=== PATIENT | female | born 1950 | race Caucasian/White ===

== ENCOUNTER 2023-11-19 16:39 | Emergency (ER) | payer MEDICARE, SELFPAY ==
[2023-11-19] VITALS (12 sets, daily range): BP systolic 100–139; BP diastolic 37–58; PULSE 46–93; RESP 20–25; TEMP 36.3–36.4; O2SAT 89–95
--- NOTE | ~2023-11-19 | CT_ITS ---
EXAMINATION: CT abdomen pelvis wo con DATE: 11/19/2023 22:40 INDICATION: generalized abd pain; WBC 141 c/f malignancy TECHNIQUE: Computed tomography (CT) of the abdomen and pelvis was performed without intravenous contr ast. Automated exposure control and iterative reconstruction technique were employed. The dose-length product was 821.10 mGy-cm. COMPARISON: None. FINDINGS: Lower thorax: Coronary artery calcifications. Subsegmental left basilar consolidation. Small left ple ural effusion Liver: Mildly enlarged. Biliary/Gallbladder: Gallbladder is normal. No bile duct dilation. Pancreas: Mild fatty atrophy. Spleen: Enlarged. Multiple splenic hypodensities. Mild perisplenic stranding. Adrenals:No mass. Kidneys: No suspicious mass, obstructing stone, or hydronephrosis. GI tract: Duodenal diverticulum. No small or large bowel dilation. Normal appendix. Diverticulosis wi thout diverticulitis. Mesentery/Peritoneum: No ascites, mass, or free air. Retroperitoneum: No mass. Atherosclerotic abdominal aortic and/or arterial calcifications. Pelvis: Normal urinary bladder. Absent uterus. Soft Tissues: Soft tissues and body wall unremarkable. Bones: No acute osseous finding. Uncomplicated L5-S1 fusion hardware IMPRESSION: Subsegmental left basilar atelectasis/consolidation. Small left pleural effusion. Mild hepatomegaly. Marked splenomegaly with perisplenic stranding and multiple hypodense splenic lesions, that may repre sent benign or malignant lesions, splenic abscesses, infarct or a combination thereof. Consider MR of the abdomen without and with contrast for further evaluation. Reviewed, dictated and finalized at location K. IMPRESSION: Subsegmental left basilar atelectasis/consolidation. Small left pleural effusio n. Mild hepatomegaly. Marked splenomegaly with perisplenic stranding and multiple hypodense splenic l esions, that may represent benign or malignant lesions, splenic abscesses, infa rct or a combination thereof. Consider MR of the abdomen without and with contr ast for further evaluation.
--- NOTE | ~2023-11-19 | XR_ITS ---
XR chest 2V Ordering provider: Beth Lopez PA-C History: 73 years Female with . SOB . Comparison: None. FINDINGS: MEDIASTINUM: The cardiac silhouette is not enlarged. Elevation of the left hemidiaphragm. Atelectasis versus pneumonia in the left lung base with possible effusion. LUNGS: No infiltrates, effusions or pneumothorax. OTHER: No free air under the diaphragm. IMPRESSION: Left basal atelectasis versus pneumonia with pleural effusion. Reviewed, dictated and finalized at location A.
--- NOTE | ~2023-11-19 | CT_ITS ---
EXAMINATION: CT diagnostic chest wo con DATE: 11/20/2023 00:06 INDICATION: Pneumonia versus malignancy. TECHNIQUE: Computed tomography (CT) of the chest was performed without intravenous contrast. The dose -length product was 195.59 mGy-cm. Automated exposure control and iterative reconstruction technique were employed. COMPARISON: None FINDINGS: Small left pleural effusion. No thoracic lymphadenopathy. There is lingular and left lower lobe airspace disease which may represent atelectasis or pneumonia. Upper abdomen is unremarkable. No suspicious pulmonary nodules or masses. IMPRESSION: 1. Lingular and left lower lobe airspace disease which may represent atelectasis and/or pneumonia. 2: Small left pleural effusion. Reviewed, dictated and finalized at location B. IMPRESSION: 1. Lingular and left lower lobe airspace disease which may represent atelectasi s and/or pneumonia. 2: Small left pleural effusion.
--- NOTE | 2023-11-19 17:41 | ECG_ITS ---
Test Date: 2023-11-19 20:18:37 Measurements Intervals Transfer Rate: 86 P: 11 [place]: 173 QRS: 1 QRSD: 102 T: 29 QT: 396 QTc: 475 Interpretive Statements SINUS RHYTHM NONSPECIFIC T-WAVE ABNORMALITY- DIFFUSE LEADS BASELINE ARTIFACT- I, II, AVR, AVF, V2-V6 BORDERLINE ECG No previous ECG available for comparison Electronically Signed On 11-19-2023 20:44:09 CDT by Franki Oconnor D.O.
--- NOTE | 2023-11-19 17:42 | ED.WEAKNESS ---
HPI - Weakness General Chief complaint: Upper Respiratory Infection <Beth Lopez PA-C - Last Filed: 11/28/23 15:23> Stated complaint: fatigue, cough/congestion <Beth Lopez PA-C - Last Filed: 11/28/23 15:23> Time Seen by Provider: 11/19/23 17:42 <Beth Lopez PA-C - Last Filed: 11/28/23 15:23> Focused HPI: This is a 73-year-old female that presents to the emergency department for feeling unwell. Reports this has been ongoing over the last 10 days. Reports cough, congestion, shortness of breath, fatigue, abdominal pain, vomiting. She was seen by her PCP and started on an antibiotic. She was feeling so unwell today that she had her friend bring her to the ER for further evaluation. GENERAL: Elderly, well-nourished, and in no acute distress. HEAD: Normocephalic, atraumatic. CHEST: Clear to auscultation. ?No respiratory distress. HEART: Regular rate and rhythm.? NEURO: ?Alert and oriented x3. Patient screened in triage and initial orders placed.? ?Additional care and disposition to be based upon?diagnostic testing and treatment. <Beth Lopez PA-C - Last Filed: 11/28/23 15:23> Source: patient and other (Support person; her boss) <Chayito Rangel MD - Last Filed: 11/20/23 10:14> Mode of arrival: ambulatory <Chayito Rangel MD - Last Filed: 11/20/23 10:14> Limitations: no limitations <Chayito Rangel MD - Last Filed: 11/20/23 10:14> History of Present Illness HPI Narrative: Agree with the above with the following additions/correction: Patient presents with fatigue, cough and congestion general upper respiratory symptoms. She denies any fevers. She had vomited a few times. She feels short of breath with ambulating and had decreased p.o. intake for past 10 days. 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 Her primary care physician tested her for COVID, flu, and strep and she tested negative. He diagnosed her with a viral infection but did prescribe amoxicillin along a late which she has been taking without improvement. She does state she has been confused. She has a history of some chronic kidney dysfunction and Patient states she recently had lab work done that showed her GFR was 52 though it is unclear whether this was recent lab work and therefore possibly reflective of MARLENI on CKD at that time. <Chayito Rangel MD - Last Filed: 11/20/23 10:14> Related Data Allergies/Adverse reactions: Allergies Allergy/AdvReac Type Severity Reaction Status Date / Time codeine AdvReac Unknown Vomiting Verified 11/20/23 15:46 <Beth Lopez PA-C - Last Filed: 11/28/23 15:23> Review of Systems Review of Systems: CONSTITUTIONAL: Denies fever ENT: Reports congestion CARDIOVASCULAR: Denies chest pain RESPIRATORY: Reports cough and dyspnea. NEUROLOGIC: Reports generalized weakness. 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 EYES: Non injected, non icteric ENT: Nares clear, no rhinorrhea or epistaxis. Tacky mucous membranes. NECK: Supple. CHEST: Speaking in full sentences. No respira
[2023-11-19] MEDS: SODIUM CHLORIDE 0.9% IV 1,000 ML 999 ML IV CONT ×2 (20:11→21:23)
[2023-11-19 20:28] LABS: Basophils Absolute Auto 0.2 K/mm3 (0.0-0.1); Basophils Percent Auto 0.2 % (0.2-1.2); Eosinophils Absolute Auto 0.1 K/mm3 (0-0.3); Hematocrit 33.9 % (37.0-47.0); Immature Platelet Fraction Pct 25.3 % (0.9-11.2); Lymphocytes Absolute Auto 8.23 K/mm3 (0.9-3.2); Lymphocytes Percent Auto 5.8 % (18.3-44.2); Mean Corpuscular HGB Conc 35.4 g/dl (32-36); Mean Corpuscular Hemoglobin 28.8 pg (26-34); Mean Corpuscular Volume 81.5 fl (80-100); Monocytes Absolute Auto 86.4 K/mm3 (0.1-0.6); Neutrophils Absolute Auto 46.8 K/mm3 (1.3-6.7); Nucleated Red Blood Cells Perc 0.3 % (0.0-0.2); Red Blood Count 4.16 M/mm3 (4.2-5.4); Red Cell Distribution Width 16.2 % (11.5-14.5)
[2023-11-19 20:37] LABS: Magnesium 2.4 mg/dL (1.6-2.3)
[2023-11-19 20:41] LABS: Alanine Aminotransferase 59 U/L (6-35); Albumin Level 3.6 g/dL (3.5-5.1); Alkaline Phosphatase 220 U/L (38-126); Anion Gap 16 mmol/L (4-12); Aspartate Amino Transferase 58 U/L (14-36); Bilirubin,Total 2.4 mg/dL (0.2-1.3); Blood Urea Nitrogen 63 mg/dL (7-17); Carbon Dioxide 22 mmol/L (22-30); Chloride 91 mmol/L (98-107); Estimated CRCL calculation 15 ml/min; Estimated Glomerular Filt Rate 16; Glucose 95 mg/dL (65-110); Lipase 67 U/L (23-300); Potassium 3.6 mmol/L (3.4-5.0); Sodium 129 mmol/L (137-145)
[2023-11-19 20:47] LABS: Appearance Urine Turbid (Clear); Bacteria Urine None Seen /hpf; Bilirubin Urine Negative (Negative); Blood Urine 3+ (Negative); Color Urine Yellow (Yellow); Glucose Urine UA Negative (Negative); Ketones Urine Trace mg/dL (Negative); Leukocyte Esterase Ur Negative LEU/UL (Negative); Need Manual Microscopic Reviewed; Nitrate Urine Negative (Negative); Protein Urine 2+ mg/dL (Negative); Specific Grav Ur 1.016 (1.001-1.035); Squamous Epithelial Cell Urine Many /hpf (Few); WBC Urine 0-5 /hpf (0-3); pH Urine 5.5 (5.0-9.0)
[2023-11-19 20:52] LABS: Add Urine Microscopic? YES
[2023-11-19 21:02] LABS: NT Pro B Type Natriuretic Pept 3750 pg/mL (19.9-100); Troponin I 0.272 ng/mL (0.000-0.034)
[2023-11-19 21:05] LABS: Influenza A QL RT-PCR Negative (Negative); Influenza B QL RT-PCR Negative (Negative); RSV RNA, RT-PCR Negative (Negative); SARS-CoV-2 RNA PCR Negative (Negative)
[2023-11-19 21:09] LABS: White Blood Count 141.7 K/mm3 (4.5-10.0)
[2023-11-19 21:10] LABS: Platelet Count Result 29 k/mm3 (150-375)
[2023-11-19 21:11] LABS: Platelet Estimate Decreased (Adequate); Schistocytes None Seen; Smudge Cells MANY
[2023-11-19] MEDS: AZITHROMYCIN 500 MG/NS 250 ML 500 MG/250 ML BAG 250 MG IVPB (21:25)
[2023-11-19 21:31] LABS: INR 1.4; Partial Thromboplastin Time 31.6 Seconds (22.3-36.8); Prothrombin Time 17.1 Seconds (11.1-14.7)
--- NOTE | 2023-11-19 21:39 | PC.NURSE ---
edp notified that patient is having severe abdominal pain and increased nausea. Pt moved from ed 21 to ed 3 and placed on a residential monitor at this time.
[2023-11-19] MEDS: ONDANSETRON INJ 4 MG/2 ML VIAL IV PUSH (21:45)
--- NOTE | 2023-11-19 22:00 | PC.NURSE ---
edp Rangel at bedside to update pt and do abdominal assessment d/t increase pain. Pt Updated and edp will order ct at this time.
[2023-11-19 22:11] LABS: Bilirubin Indirect 0.5 mg/dL (0-1.1)
[2023-11-19] MEDS: VANCOMYCIN 1,500 MG/NS 500 ML 1,500 MG/500 ML BAG 250 MG IVPB (22:50)
[2023-11-19] MEDS: HYDROXYUREA (*CHEMO) 500 MG CAPSULE 1000 MG PO (23:10)
[2023-11-19 23:12] LABS: MRSA (PCR) NOT DETECTED (NOT DETECTE)
[2023-11-19 23:29] LABS: Lactate Dehydrogenase 955 U/L (120-246)
[2023-11-19 23:38] LABS: Uric Acid 19.7 mg/dL (2.5-7.5)
[2023-11-19] MEDS: SODIUM CHLORIDE 0.9% IV 1,000 ML 250 ML IV CONT (23:58)
[2023-11-20] VITALS (12 sets, daily range): BP systolic 105–132; BP diastolic 46–68; PULSE 46–89; RESP 15–24; O2SAT 88–99
[2023-11-20 00:01] LABS: Fibrinogen 155 mg/dl (215-510)
--- NOTE | 2023-11-20 00:02 | PC.NURSE ---
pt placed on 2lnc as her oxygen was 88% RA
[2023-11-20 00:07] LABS: Lactic Acid Reflex 1.1 mmol/L (0.7-2.0); Phosphorus 2.7 mg/dL (2.5-4.5)
[2023-11-20 00:10] LABS: D Dimer 3.06 ug/mL (<0.48)
--- NOTE | 2023-11-20 00:10 | PC.NURSE ---
C transfer center updated - no beds available at this time.
--- NOTE | 2023-11-20 01:03 | PC.NURSE ---
Deb - coworker - [phone] Brando BUENROSTRO (only call as a last resort and with pt permission per pt request) [phone]
[2023-11-20 01:17] LABS: Basophils Absolute Auto 0.4 K/mm3 (0.0-0.1); Basophils Percent Auto 0.3 % (0.2-1.2); Eosinophils Absolute Auto 0.1 K/mm3 (0-0.3); Hematocrit 29.3 % (37.0-47.0); Hemoglobin 10.2 g/dL (12.0-15.0); Immature Granulocyte Absolute 12.07 K/mm3 (0.00-0.031); Immature Granulocyte Percent A 10.3 % (0-0.5); Immature Platelet Fraction Pct 29.3 % (0.9-11.2); Lymphocytes Absolute Auto 10.58 K/mm3 (0.9-3.2); Mean Corpuscular HGB Conc 34.8 g/dl (32-36); Mean Corpuscular Hemoglobin 28.6 pg (26-34); Mean Corpuscular Volume 82.1 fl (80-100); Monocytes Absolute Auto 85.6 K/mm3 (0.1-0.6); Monocytes Percent Auto 72.8 % (2.6-8.5); Neutrophils Absolute Auto 8.8 K/mm3 (1.3-6.7); Neutrophils Percent Auto 7.6 % (45.5-73.1); Nucleated Red Blood Cells Perc 0.3 % (0.0-0.2); Red Blood Count 3.57 M/mm3 (4.2-5.4); Red Cell Distribution Width 16.1 % (11.5-14.5)
[2023-11-20 01:22] LABS: White Blood Count 117.5 K/mm3 (4.5-10.0)
[2023-11-20 01:23] LABS: Platelet Count Result 21 k/mm3 (150-375)
[2023-11-20] MEDS: ASPIRIN 81 MG CHEWABLE TABLET 324 MG PO (01:32)
[2023-11-20] MEDS: allopurinoL 100 MG TABLET 200 MG PO (01:32)
[2023-11-20 01:42] LABS: Platelet Estimate Decreased (Adequate); Smudge Cells MANY
[2023-11-20 01:43] LABS: Schistocytes None Seen
[2023-11-20 01:59] LABS: Troponin I 0.566 ng/mL (0.000-0.034)
--- NOTE | 2023-11-20 01:59 | ECG_ITS ---
Test Date: 2023-11-20 02:07:09 Measurements Intervals [place] Rate: 79 P: 3 [place]: 187 QRS: 17 QRSD: 106 T: 4 QT: 438 QTc: 502 Interpretive Statements SINUS RHYTHM CONSIDER INFERIOR INFARCT, AGE INDETERMINATE NONSPECIFIC T-WAVE ABNORMALITY- ANTEROLAT/HIGH LAT LEADS PROLONGED QT INTERVAL ABNORMAL ECG Compared to ECG 11/19/2023 20:18:37 Prolonged QT interval now present Electronically Signed On 11-20-2023 07:44:29 CDT by Franki Oconnor D.O.
[2023-11-20 03:02] LABS: Anion Gap 11 mmol/L (4-12); Blood Urea Nitrogen 56 mg/dL (7-17); Calcium 7.5 mg/dL (8.4-10.2); Carbon Dioxide 21 mmol/L (22-30); Chloride 99 mmol/L (98-107); Estimated CRCL calculation 17 ml/min; Estimated Glomerular Filt Rate 19; Glucose 88 mg/dL (65-110); Potassium 3.3 mmol/L (3.4-5.0); Sodium 131 mmol/L (137-145)
[2023-11-20] MEDS: POTASSIUM PHOS/SODIUM PHOS 250 MG TABLET PO (03:56)
[2023-11-20] MEDS: CALCIUM GLUCONATE 1,000 MG/10 ML VIAL 1000 MG IV PUSH (03:56)
[2023-11-20 08:05] LABS: Estimated CRCL calculation 17 ml/min; Estimated Glomerular Filt Rate 19
--- NOTE | 2023-11-20 08:23 | PC.NURSE ---
SPOKE WITH TRANSFER CENTER AT [facility] FOR BED STATUS UPDATE. NO BED AVAILABLE AT THIS TIME.
[2023-11-20 08:29] LABS: Basophils Absolute Auto 0.3 K/mm3 (0.0-0.1); Basophils Percent Auto 0.4 % (0.2-1.2); Eosinophils Absolute Auto 0.1 K/mm3 (0-0.3); Eosinophils Percent Auto 0.1 % (0-4.4); Hematocrit 28.8 % (37.0-47.0); Hemoglobin 9.8 g/dL (12.0-15.0); Immature Granulocyte Absolute 7.47 K/mm3 (0.00-0.031); Immature Granulocyte Percent A 8.3 % (0-0.5); Immature Platelet Fraction Pct 29.5 % (0.9-11.2); Lymphocytes Absolute Auto 8.41 K/mm3 (0.9-3.2); Lymphocytes Percent Auto 9.4 % (18.3-44.2); Mean Corpuscular Hemoglobin 28.5 pg (26-34); Mean Corpuscular Volume 83.7 fl (80-100); Monocytes Absolute Auto 66.2 K/mm3 (0.1-0.6); Monocytes Percent Auto 73.9 % (2.6-8.5); Neutrophils Absolute Auto 7.1 K/mm3 (1.3-6.7); Neutrophils Percent Auto 7.9 % (45.5-73.1); Nucleated Red Blood Cells Perc 0.3 % (0.0-0.2); Red Blood Count 3.44 M/mm3 (4.2-5.4); Red Cell Distribution Width 16.6 % (11.5-14.5)
[2023-11-20 08:43] LABS: Platelet Count Result 17 k/mm3 (150-375); White Blood Count 89.6 K/mm3 (4.5-10.0)
[2023-11-20 08:44] LABS: Platelet Estimate Decreased (Adequate)
[2023-11-20 08:51] LABS: Anisocytosis 1+; Poikilocytosis 1+; Smudge Cells MANY
[2023-11-20 08:52] LABS: Schistocytes None Seen
[2023-11-20] MEDS: HYDROXYUREA (*CHEMO) 500 MG CAPSULE 1000 MG PO (08:54)
[2023-11-20 08:57] LABS: Troponin I 0.379 ng/mL (0.000-0.034)
--- NOTE | 2023-11-20 15:44 | PC.NURSE ---
ordered meal tray for patient @[id number]
[2023-11-20] MEDS: SODIUM CHLORIDE 0.9% IV 500 ML 999 ML IV CONT (16:14)
[2023-11-20] MEDS: HYDROcodone/acetaminophen (*CRX) 5-325 MG TABLET 1 TAB PO (16:14)
[2023-11-20] MEDS: ONDANSETRON INJ 4 MG/2 ML VIAL IV PUSH (16:14)
--- NOTE | 2023-11-20 16:21 | PC.NURSE ---
Wandy from [facility] transfer center called to state patient got a bed at [facility] in room 8803 @1606. nurse was unable to give report right away but called back @1620 for report. report given to SHONDA Merrill at [facility].
[2023-11-25 02:37] LABS: Legionella pneumophila Ag Ur NOT DETECTED
== END 2023-11-20 17:24 | disposition short-term general hospital (02) ==
PROVIDERS: Physician Assistant; Emergency Provider Student in an Organized Health Care Education/Training Program; PCP Internal Medicine
DX: C93.90 Monocytic leukemia, unspecified, not having achieved remission (principal); I21.4 Non-ST elevation (NSTEMI) myocardial infarction; J18.9 Pneumonia, unspecified organism; N17.9 Acute kidney failure, unspecified; E80.6 Other disorders of bilirubin metabolism; R74.01 Elevation of levels of liver transaminase levels; E87.1 Hypo-osmolality and hyponatremia; D69.6 Thrombocytopenia, unspecified; J90 Pleural effusion, not elsewhere classified; Z20.822 Contact with and (suspected) exposure to COVID-19; N18.9 Chronic kidney disease, unspecified
CPT/HCPCS: 36415; 71046; 71250; 74176; 80048; 80053; 81001; 82248; 82565; 83605; 83615; 83690; 83735; 83880; 84100; 84484; 84550; 85025; 85055; 85380; 85384; 85610; 85730; 87040; 87449; 87637; 87641; 93005; 96361; 96365; 96366; 96367; 96375; 99291; A9270; J0456; J0612; J0696; J2405; J3370; J7030; J7040